=== PATIENT | male | born 1975 ===

== ENCOUNTER 2017-03-22 16:52 | Emergency (ER) | payer BC ==
[2017-03-22 18:05] VITALS: BP 127/78
[2017-03-22] MEDS ORDERED: Fluorescein Sodium TOPICAL* 1 MG TEST OPHTHALMIC ONE (18:24)
[2017-03-22] MEDS ORDERED: BSS OPTH.SOL* BTL OPHTHALMIC ONE (18:24)
--- NOTE | 2017-03-22 18:41 | UC ---
Skin Complaint HPI - HPI Summary HPI Summary: pain and rash on left top side of head and forehead and swollen glands right side of neck has been there for 3 days did take some of his mothers valtrex for the past 2 days - History of Current Complaint Chief Complaint: UCSkin Time Seen by Provider: 03/22/17 18:01 Stated Complaint: SKIN COMPLAINT Hx Obtained From: Patient Onset/Duration: Sudden Onset, Lasting Days - 3, Still Present Timing: Constant Onset Severity: Moderate Current Severity: Moderate Location: Discrete - side of forehead and top of scalp Character: Redness, Raised, Painful Aggravating Factor(s): Nothing Alleviating Factor(s): Nothing Associated Signs & Symptoms: Positive: Rash - Allergy/Home Medications Allergies/Adverse Reactions: Allergies Allergy/AdvReac Type Severity Reaction Status Date / Time No Known Allergies Allergy Verified 03/22/17 17:59 Review of Systems Constitutional: Negative Skin: Rash Eyes: Negative ENT: Negative Respiratory: Negative Cardiovascular: Negative Gastrointestinal: Negative Genitourinary: Negative Motor: Negative Neurovascular: Negative Musculoskeletal: Negative Neurological: Negative Psychological: Negative Is Patient Immunocompromised?: No All Other Systems Reviewed And Are Negative: Yes PMH/Surg Hx/FS Hx/Imm Hx Previously Healthy: Yes - Surgical History Surgical History: None - Family History Known Family History: Positive: None - Social History Occupation: Employed Full-time Lives: With Family Alcohol Use: None Substance Use Type: None Smoking Status (MU): Never Smoked Tobacco - Immunization History Most Recent Influenza Vaccination: no Physical Exam Triage Information Reviewed: Yes Appearance: Well-Appearing, No Pain Distress, Well-Nourished Vital Signs: Initial Vital Signs Temp 97.4 F 03/22/17 18:00 Pulse 71 03/22/17 18:00 Resp 16 03/22/17 18:00 BP 127/78 03/22/17 18:00 Pulse Ox 99 03/22/17 18:00 Vital Signs Reviewed: Yes Eye Exam: Normal Eyes: Positive: Conjunctiva Clear, Other: - left eye stained-no dendrites noted ENT Exam: Normal ENT: Positive: Normal ENT inspection, Hearing grossly normal, Pharynx normal, TMs normal, Uvula midline. Negative: Nasal congestion, Tonsillar swelling, Tonsillar exudate, Trismus, Muffled voice, Hoarse voice, Sinus tenderness Dental Exam: Normal Neck exam: Other Neck: Positive: Supple, Nontender, Enlarged Nodes @ - anterior cervical and auricle Respiratory Exam: Normal Respiratory: Positive: Chest non-tender, Lungs clear, Normal breath sounds, No respiratory distress, No accessory muscle use Cardiovascular Exam: Normal Cardiovascular: Positive: RRR, No Murmur, Pulses Normal, Brisk Capillary Refill Musculoskeletal Exam: Normal Musculoskeletal: Positive: Strength Intact, ROM Intact, No Edema Neurological Exam: Normal Neurological: Positive: Alert, Muscle Tone Normal Psychological Exam: Normal Skin: Positive: Other - red bases scattered vesicular groups of lesions Course/Dx - Course Course Of Treatment: valcyclovir, viroptic follow with opthomology in 1 day - Diagnoses Provider Diagnoses: Shingles Discharge - Discharge Plan Condition: Stable Disposition: HOME Prescriptions: Trifluridine 1% OPTH.MARISOL*(NF) [Viroptic 1% OPTH.MARISOL*] 1 drop .SEE ORDER Q2H #1 btl ValACYclovir (*) [Valtrex 1 GM(*)] 1 gm PO TID #21 tab Patient Education Materials: Shingles (ED), How to Use Eye Drops (ED) Referrals: Andreia Castellanos MD [Medical Doctor] - 1 Day Hany Vazquez MD [Medical Doctor] - 1 Day
== END 2017-03-22 18:50 | disposition home or self-care (01) ==
LOC: UCCORT 16:52
DX: B02.9 Zoster without complications (principal)
CPT/HCPCS: 99202; A9270-GY; G0463

== ENCOUNTER 2017-12-11 20:42 | Emergency (ER) | payer BC, OTHER ==
[2017-12-11 20:59] VITALS: BP 116/83
--- NOTE | 2017-12-11 21:19 | UC ---
Complaint Male HPI - HPI Summary HPI Summary: C/O acute onset left testicular pain at 1230. - History of Current Complaint Chief Complaint: UCGU Stated Complaint: PERSONAL Time Seen by Provider: 12/11/17 21:08 Hx Obtained From: Patient Onset/Duration: Sudden Onset, Lasting Hours - 8 Timing: Constant Severity Initially: Moderate Severity Currently: Moderate Pain Intensity: 5 Location: Testicle - left Character: Sharp Alleviating Factor(s): Movement Associated Signs And Symptoms: Negative: Diaphoresis, Fever, Dysuria - Risk Factors Testicular Torsion: Recent Testicular Trauma - Had vasectomy 11/19/17 - Allergies/Home Medications Allergies/Adverse Reactions: Allergies Allergy/AdvReac Type Severity Reaction Status Date / Time No Known Allergies Allergy Verified 12/11/17 20:59 Home Medications: Home Medications Carbergolin 0.5 mg PO SEE INSTRUCTIONS 12/11/17 [History] PMH/Surg Hx/FS Hx/Imm Hx Previously Healthy: Yes - Surgical History Surgical History: Yes Surgery Procedure, Year, and Place: vasectomy 11/19/17 by Omayra - Family History Known Family History: Positive: Hypertension Negative: Diabetes - Social History Occupation: Employed Full-time Lives: With Family Alcohol Use: Occasionally Substance Use Type: None Smoking Status (MU): Never Smoked Tobacco Have You Smoked in the Last Year: No - Immunization History Most Recent Influenza Vaccination: no Review of Systems Is Patient Immunocompromised?: No All Other Systems Reviewed And Are Negative: Yes Physical Exam Triage Information Reviewed: Yes Appearance: Well-Appearing, Well-Nourished, Pain Distress - mild Vital Signs: Initial Vital Signs Temp 98.7 F 12/11/17 20:51 Pulse 78 12/11/17 20:51 Resp 18 12/11/17 20:51 BP 116/83 12/11/17 20:51 Pulse Ox 100 12/11/17 20:51 Vital Signs Reviewed: Yes Eyes: Positive: Conjunctiva Clear Neck exam: Normal Respiratory Exam: Normal Cardiovascular Exam: Normal Male Genital Exam: Positive: Scrotum Tenderness (L), Testicular Tenderness (L) - with significant swelling Musculoskeletal Exam: Normal Neurological Exam: Normal Psychological Exam: Normal Skin Exam: Normal Complaint Male Course/Dx - Course Course Of Treatment: Patient advised C/O possible testicular torsion will need testicular U/S urgently. - Differential Dx/Diagnosis Differential Diagnosis/HQI/PQRI: Incarcerated Hernia, Prostatitis, Testicular Torsion Provider Diagnoses: Left testicular pain - Physician Notifications Discussed Patient Care With: Jonathan Steele - by private car to [facility]. Time Discussed With Above Provider: 21:28 Discharge - Sign-Out/Discharge Documenting (check all that apply): Patient Departure All imaging exams completed and their final reports reviewed: No Studies - Discharge Plan Condition: Guarded Disposition: TRANS HIGHER LVL OF CARE FAC Patient Education Materials: Testicle Pain (ED), Testicular Torsion (ED) Referrals: Nohelia Cash MD [Primary Care Provider] - Additional Instructions: GO STRAIGHT TO [facility]. - Billing Disposition and Condition Condition: GUARDED Disposition: Trans Higher Lvl of Care Fac
== END 2017-12-11 21:34 | disposition short-term general hospital (02) ==
LOC: UCCORT 20:42
DX: N50.812 Left testicular pain (principal)
CPT/HCPCS: 81003; 99212; G0463